=== PATIENT | female | born 1985 | race Caucasian/White ===

== ENCOUNTER 2018-10-04 19:20 | Inpatient (IN) | payer BC, SELFPAY ==
[2018-10-04] MEDS: 0.9% Saline Lock 10 ML Syringe IV (20:05)
[2018-10-04 20:19] VITALS: BMI 29.9
[2018-10-04 20:24] LABS: Absolute Lymphocyte Count 2.15 X10^3/ul (0.83-4.51); Absolute Neutrophil Count 9.1 X10^3/uL (2.0-7.7); Basophil# 0.01 X10^3/uL; Basophil% 0.1 % (0-1); Eosinophil# 0.06 X10^3/uL; Eosinophils% 0.5 % (0-5); Hematocrit 36.5 % (37-47); Hemoglobin 12.7 g/dl (12.0-15.0); Lymphocyte # 2.15 X10^3/ul (4.0); Lymphocyte % 17.4 % (19-41); Mean Corp Hgb Conc 34.8 g/gl (32-36); Mean Corpuscular Hgb 32.3 pg (27.0-32.0); Mean Corpuscular Volume 92.9 fL (81-99); Mean Platelet Vol. 12.2 fl (6.2-12.0); Monocyte# 1.05 X10^3/uL; Monocyte% 8.5 % (0-10); Neutrophil # 9.05 X10^3/uL (2.7-7.7); Neutrophil % 73.1 % (47-70); POSITIVE COUNT NO; POSITIVE DIFFERENTIAL NO; POSITIVE MORPHOLOGY NO; Platelet Count 156 K/mm3 (150-450); RBC Distribution Width CV 14.3 % (11.6-14.6); RBC Distribution Width SD 48.4 fl (35.1-43.9); Red Blood Count 3.93 M/mm3 (4.2-5.4); White Blood Count 12.4 K/mm3 (4.4-11.0)
[2018-10-04] MEDS: Lactated Ringers 1,000 ML 50 ML IV ×2 (20:51→22:25)
[2018-10-04] MEDS: Oxytocin 30 units/NS 500 ml 30 UNITS/500 ML IV.SOLN IV (23:00)
[2018-10-04] MEDS: Ondansetron 4 MG/2 ML Vial IV (23:40)
--- NOTE | 2018-10-04 23:56 | PCM.HP.OB ---
History Date of Admission: 10/04/18 Final TAMMY: 09/28/18 Gestational age: 40 Weeks and 6 Days History of this : This is a 33 year-old, G [], P [], at 40 weeks gestational age. Surgical History: Surgical History (Last Updated 10/05/18 @ 00:00 by Gucci Perez) Hx of section Z98.891 Hx of oral surgery Z98.890 Allergies No Known Allergies Allergy (Verified 10/04/18 20:20) Home Medications: Home Medications Docusate Sodium [Colace] 1 capsule PO DAILY 10/04/18 Ferrous Sulfate 325 mg PO DAILY 10/04/18 Vits [Prenatabs FA] 1 tablet PO DAILY 10/04/18 Smoking Status: Former smoker Alcohol: None Heart Tracin with mod variability, accels, variables TOCO Analysis: Q2-3 minutes History Past Pregnancies: Past Pregnancies Delivery Date Name GA/Weeks Outcome Route Weight Infant Gender Labor Length Anesthesia Delivery Location Provider FOB Labs: See [facility] Physical Exam General: Alert, Oriented x3 Abdomen: Soft, Non Tender, Non-Distended, 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 MOD - patient counseled extensively on R/B/A of repeat vs TOLAC. Patient wishes to proceed with TOLAC via induction. She is s/p AROM and is on pitocin. Anesthesia - getting epidural now. GBS negative.
[2018-10-05] VITALS (19 sets, daily range): BP systolic 98–133; BP diastolic 47–82; PULSE 71–103; RESP 14–18; TEMP 36.8–38.2; O2SAT 95–98
--- NOTE | 2018-10-05 00:03 | HP.PCM_ITS ---
History Date of Admission: 10/04/18 Final TAMMY: 09/28/18 Gestational age: 40 Weeks and 6 Days History of this : This is a 33 year-old, G [], P [], at 40 weeks gestational age. Surgical History: Surgical History (Last Updated 10/05/18 @ 00:00 by Gucci Perez) Hx of section Z98.891 Hx of oral surgery Z98.890 Allergies No Known Allergies Allergy (Verified 10/04/18 20:20) Home Medications: Home Medications Docusate Sodium [Colace] 1 capsule PO DAILY 10/04/18 Ferrous Sulfate 325 mg PO DAILY 10/04/18 Vits [Prenatabs FA] 1 tablet PO DAILY 10/04/18 Smoking Status: Former smoker Alcohol: None Heart Tracin with mod variability, accels, variables TOCO Analysis: Q2-3 minutes History Past Pregnancies: Past Pregnancies Delivery Date Name GA/Weeks Outcome Route Weight Infant Gender Labor Length Anesthesia Delivery Location Provider FOB Labs: See [facility] Physical Exam General: Alert, Oriented x3 Abdomen: Soft, Non Tender, Non-Distended, Gravid [employer]: Normal external genitalia Estimated gestational size: Appropriate for gestational size Presentation: Cephalic Cervix Dilation (cm): 4 Station: -2 Effacement (%): 70 Assessment/Plan This is a 33 year-old female at 40&6 weeks gestational age Admit to L&D. MOD - patient counseled extensively on R/B/A of repeat vs TOLAC. Patient wishes to proceed with TOLAC via induction. She is s/p AROM and is on pitocin. Anesthesia - getting epidural now. GBS negative.
[2018-10-05] MEDS: fentaNYL-bupivacaine (epidural) 100 ML BAG EPIDURAL ×3 (00:25→09:05)
[2018-10-05] MEDS: Lactated Ringers 1,000 ML 50 ML IV ×2 (02:58→09:06)
[2018-10-05] MEDS: 0.9% Saline Lock 10 ML Syringe IV (04:27)
[2018-10-05] MEDS: Ondansetron 4 MG/2 ML Vial IV (07:02)
--- NOTE | 2018-10-05 10:14 | PCM.OPRPT ---
Report of Operation Date of Procedure: 10/05/18 Pre-Operative Diagnosis: (1) Prior section (2) Attempted TOLAC (3) Failure to dilate Post-Operative Diagnosis: Same Surgery/Procedure Performed:: Repeat low transverse section Description of Surgical Findings:: Normal uterus & adnexa basket machine operator: Livia Plasencia Type of Anesthesia:: Epidural Specimen's removed: Placenta Drains: Mayo Estimated Blood Loss (mL): 700ml Fluids Replaced: 1200ml - Complications none - Admit VTE Documentation VTE Present on Admission: No VTE Mechan Device Prophylaxis: SCD's Delivery Classification: OSCAR Final TAMMY: 09/28/18 Gestational age: 41 Weeks and 0 Days Indications: See pre-op diagnoses. Attempted TOLAC that failed to dilate past 8cm. Description of Procedure: Patient taken to OR where she was prepped and draped in normal sterile fashion in a dorsal lithotomy position with a leftward tilt. After ensuring adequacy of anesthesia the Pfannensteil skin incision was made and carried through to the underlying fascia. The fascia was incised in the midline and carried laterally with the Willard scissors. The rectus muscles were in the midline and the peritoneum was entered bluntly. The bladder flap was dissected down with the Metzenbaum scissors and careful blunt dissection. The uterine incision was made with the scalpel and extended laterally w/ blunt dissection. The fetus was vertex and the head was brought to the incision in the flexed position. With good fundal pressure the head delivered easily followed by the shoulders & body. The cord was clamped and cut after 1 minute delay and the infant handed off to waiting RN. The placenta was delivered w/ gentle traction and fundal massage and the uterus was exteriorized and cleared of all clots and debris. The uterine incision was closed with 1 vicryl suture in a running locked fashion to obtain excellent hemostasis. The bladder was backfilled with 300ml methylene blue in NS. This confirmed bladder integrity. Urine was noted to have become clear just before instillation of methylene blue (just after delivery of infant the urine became more blood tinged). The uterus was then returned to the peritoneal cavity. Pelvis was irrigated. The uterine incision was reexamined and found to be hemostatic. Some royce was placed over the uterine incision & bladder flap due to the denuded areas. The parietal peritoneum was reapproximated with running 1 vicryl figure suture. The fascia was closed with looped PDS suture in a running standard fashion. The subcutaneous tissue was examined, any bleeding bovie cauterized. The subcutaneous tissue was reapproximated with plain gut suture. The skin was closed in a subcuticular fashion by the TOWER CRANE OPERATOR with me present in the labor and delivery suite. I performed the remainder of the procedure w/ assistance. Amniotic Membrane Rupture Type: Artificial Amniotic Fluid Description: Thick meconium Placenta [facility]position: [facility] Drain: Mayo to straight drain Nuchal Cord Compression: Without compression Cord Vessel Description: 3 Vessels Gender: Female (1 minute): 8 (5 minute): 9 Pre-op Antibiotic Given: Ancef 2 grams IV x1
[2018-10-05] MEDS: Sodium Citrate/Citric Acid 30 ML UDC PO (10:15)
--- NOTE | 2018-10-05 10:17 | OP.PCM_ITS ---
Report of Operation Date of Procedure: 10/05/18 Pre-Operative Diagnosis: (1) Prior section (2) Attempted TOLAC (3) Failure to dilate Post-Operative Diagnosis: Same Surgery/Procedure Performed:: Repeat low transverse section Description of Surgical Findings:: Normal uterus & adnexa racing secretary: Livia Plasencia Type of Anesthesia:: Epidural Specimen's removed: Placenta Drains: Mayo Estimated Blood Loss (mL): 700ml Fluids Replaced: 1200ml - Complications none - Admit VTE Documentation VTE Present on Admission: No VTE Mechan Device Prophylaxis: SCD's Delivery Classification: OSCAR Final TAMMY: 09/28/18 Gestational age: 41 Weeks and 0 Days Indications: See pre-op diagnoses. Attempted TOLAC that failed to dilate past 8cm. Description of Procedure: Patient taken to OR where she was prepped and draped in normal sterile fashion in a dorsal lithotomy position with a leftward tilt. After ensuring adequacy of anesthesia the Pfannensteil skin incision was made and carried through to the underlying fascia. The fascia was incised in the midline and carried laterally with the Willard scissors. The rectus muscles were in the midline and the peritoneum was entered bluntly. The bladder flap was dissected down with the Metzenbaum scissors and careful blunt dissection. The uterine incision was made with the scalpel and extended laterally w/ blunt dissection. The fetus was vertex and the head was brought to the incision in the flexed position. With good fundal pressure the head delivered easily followed by the shoulders & body. The cord was clamped and cut after 1 minute delay and the infant handed off to waiting RN. The placenta was delivered w/ gentle traction and fundal massage and the uterus was exteriorized and cleared of all clots and debris. The uterine incision was closed with 1 vicryl suture in a running locked fashion to obtain excellent hemostasis. The bladder was backfilled with 300ml methylene blue in NS. This confirmed bladder integrity. Urine was noted to have become clear just before instillation of methylene blue (just after delivery of infant the urine became more blood tinged). The uterus was then returned to the peritoneal cavity. Pelvis was irrigated. The uterine incision was reexamined and found to be hemostatic. Some royce was placed over the uterine incision & bladder flap due to the denuded areas. The parietal peritoneum was reapproximated with running 1 vicryl figure suture. The fascia was closed with looped PDS suture in a running standard fashion. The subcutaneous tissue was examined, any bleeding bovie cauterized. The subcutaneous tissue was reapproximated with plain gut suture. The skin was closed in a subcuticular fashion by the COLLEGE OR UNIVERSITY DEPARTMENT HEAD with me present in the labor and delivery suite. I performed the remainder of the procedure w/ assistance. Amniotic Membrane Rupture Type: Artificial Amniotic Fluid Description: Thick meconium Placenta Disposition: [facility] Drain: Mayo to straight drain Nuchal Cord Compression: Without compression Cord Vessel Description: 3 Vessels Gender: Female (1 minute): 8 (5 minute): 9 Pre-op Antibiotic Given: Ancef 2 grams IV x1
[2018-10-05] MEDS: Cefazolin 2 GM in 0.9% Normal Saline 100 ML IV (10:34)
[2018-10-05] MEDS: Oxytocin 30 units/NS 500 ml 30 UNITS/500 ML IV.SOLN 167 UNITS IV (11:01)
[2018-10-05] MEDS: Ketorolac 30 MG/ML Syringe IV ×2 (12:00→17:59)
[2018-10-05] MEDS: Lactated Ringers 1,000 ML 100 ML IV (12:30)
--- NOTE | 2018-10-05 18:03 | NURSING ---
Epidural cath removed, blue tip intact
[2018-10-05] MEDS: Acetaminophen 500 MG Tablet 1000 MG PO (21:03)
[2018-10-06] VITALS (11 sets, daily range): BP systolic 88–119; BP diastolic 42–71; PULSE 72–97; RESP 15–18; TEMP 36.7–37.2; O2SAT 94–98
[2018-10-06] MEDS: Lactated Ringers 1,000 ML 100 ML IV (00:28)
[2018-10-06] MEDS: Ketorolac 30 MG/ML Syringe IV ×4 (00:28→18:05)
[2018-10-06 06:12] LABS: Hematocrit 29.9 % (37-47); Mean Corp Hgb Conc 33.4 g/gl (32-36); Mean Corpuscular Hgb 31.5 pg (27.0-32.0); Mean Corpuscular Volume 94.3 fL (81-99); Mean Platelet Vol. 11.7 fl (6.2-12.0); Platelet Count 110 K/mm3 (150-450); RBC Distribution Width CV 14.3 % (11.6-14.6); RBC Distribution Width SD 47.2 fl (35.1-43.9); Red Blood Count 3.17 M/mm3 (4.2-5.4); White Blood Count 22.1 K/mm3 (4.4-11.0)
[2018-10-06 06:13] LABS: Scan Indicated on CBC? Y/N NO
[2018-10-06] MEDS: Acetaminophen 500 MG Tablet 1000 MG PO (08:39)
[2018-10-06] MEDS: 0.9% Saline Lock 10 ML Syringe IV ×3 (11:46→18:08)
--- NOTE | 2018-10-06 12:11 | PN.OBGYN_ITS ---
Subjective: Doing well per patient and nursing staff. Ambulating and taking PO without difficulty. Voiding at this time. No bowel movement. Denies TRAVIS,vis chg's, CP,SOB,VB,LOF,or dysuria. Pain controlled. - Physical Exam General: Alert, Oriented x3, Cooperative HEENT: Atraumatic, Normocephalic Lungs: Clear to auscultation, Normal air movement, No rhonchi, No wheeze Cardiovascular: Regular rate, Regular Rhythm, No murmurs Abdomen: Bowel Sounds Present, Soft, Non Tender, - - Incision clean, dry, and intact Extremities: - - BLE pedal edema, +1. Aaron's negative bilaterally Psych/Mental Status: Normal Affect, Appropriate Vital Signs Temp Pulse Resp BP Pulse Ox 98.4 F 74 18 104/61 98 10/06/18 11:35 10/06/18 11:35 10/06/18 11:35 10/06/18 11:35 10/06/18 11:35 Oxygen Delivery Method Room Air Weight: 185 lb 3.013 oz Body Mass Index (BMI) 29.9 Intake and Output for Last 24 Hours 10/04/18 10/05/18 10/06/18 23:59 23:59 23:59 Intake Total 8276 / 8276 1222 / 1222 Output Total 4650 / 4650 2075 / 2075 Balance 3626 / 3626 -853 / -853 Laboratory Tests Past 24 Hrs 10/06/18 05:53 WBC 22.1 H RBC 3.17 L Hgb 10.0 L Hct 29.9 L MCV 94.3 MCH 31.5 MCHC 33.4 RDW 14.3 RDW Differential 47.2 H Plt Count 110 L MPV 11.7 Medical Necessity - Tobacco Use Smoking Status: Former smoker Assessment/Plan A: POD #1 RLTCS P: 1) Routine post op care 2) Pain management 3) Discharge home tomorrow.
[2018-10-06] MEDS: Senna/Docusate Sodium 1 Tablet PO (21:44)
--- NOTE | 2018-10-06 23:32 | DCINST_ITS ---
Discharge Diet: No Restrictions Discharge Activity: May Not Drive - for 2 weeks or while taking narcotic pain meds., May Shower, May Take a Tub Bath - in 7 days. May resume sexual activity in: 4-6 weeks Lifting Restrictions: 20 pounds Additional Activity Instructions:: Nothing in the vagina for 4-6 weeks. You may return to work/school in 6 weeks. Call your doctor if your incision/area has: Continuous Slow Oozing, Sudden Increased Bleeding, Increased Pain/ Swelling, Increased Redness, Foul Smelling Discharge Call your doctor if you observe: Fever of 101 or Higher, Inability to urinate, Inability to have a bowel movement, Using more than one pad per hour, Shortness of breath, Chest pain, Increased palpitations (irregular heartbeat), Calf discomfort, Uncontrolled pain Suture Line Care: Avoid Pulling/Pushing, Avoid Pinching/Bending Remove Dressing in (days):: 7 Cleanse incision/area with: Keep Dressing Clean & Dry Additional Instructions: If you experience any of the following, contact your healthcare provider. * Bleeding that soaks a pad every hour for 2 hours * Fever 100.4 or higher * Unrelieved incision or abdominal pain * Swelling, redness, discharge or bleeding from your incision or episiotomy site * Your incision begins to separate * Problems urinating (including inability to urinate or burning while urinating). * Visual changes * Severe headache * Flu-like symptoms * Pain or redness in one of both of your breasts * Pain, warmth, tenderness or swelling in your legs, especially the calf area * Frequent nausea and vomiting * Symptoms of depression or anxiety If you experience any of the following, call 911 or go to the nearest Emergency Room. * Chest pain * Problems breathing * Seizure activity * Partial or complete paralysis of a body part, slurred speech, weakness or drooping of the face, or a sudden inability to walk or hold your balance Allergies/Adverse Reactions: Allergies No Known Allergies Allergy (Verified 10/04/18 20:20) Medications to take at Discharge Docusate Sodium [Colace] 1 capsule PO DAILY 10/04/18 Ferrous Sulfate 325 mg PO DAILY 10/04/18 Vits [Prenatabs FA ] 1 tablet PO DAILY 10/04/18 Oxycodone HCl/Acetaminophen [Percocet 5/325] 1 - 2 tab PO Q4H PRN PRN 7 Days #20 tab 10/06/18 The following prescriptions were given: Oxycodone HCl/Acetaminophen [Percocet 5/325] 1 - 2 tab PO Q4H PRN PRN 7 Days #20 tab PRN Reason: Pain Follow-Up: Call to make an appointment with your doctor for an incision check in 1-2 weeks. You will also need a 6 week post- follow up appointment. Test results from this visit will be discussed in further detail at your follow- up appointment, if applicable. Please Follow Up With: Gucci Perez Primary Care Physician: Care Physician,No Primary [Primary Care Provider] -
--- NOTE | 2018-10-06 23:33 | PCM.DC.SUM ---
Discharge Date and Diagnosis Date of Admission: 10/04/18 Date of Discharge: 10/07/18 - Primary Discharge Diagnosis Trial of Labor After Section Hospital Course and Treatment Operations: - - Failed TOLAC, Repeat LTCS Summary of Care Provided: The patient is a 33 year old F [presented for postdates TOLAC induction of labor. Attempted TOLAC that failed to dilate past 8cm. Repeat LTCS completed by . No complications. Discharge home on POD#2. ] - Physical Exam Vital Signs Temp Pulse Resp BP Pulse Ox 98.9 F 91 18 119/58 L 94 10/06/18 21:25 10/06/18 21:25 10/06/18 21:25 10/06/18 21:25 10/06/18 21:25 Oxygen Delivery Method Room Air Weight: 185 lb 3.013 oz Body Mass Index (BMI) 29.9 Intake and Output for Last 24 Hours 10/04/18 10/05/18 10/06/18 23:59 23:59 23:59 Intake Total 8276 / 8276 1222 / 1222 Output Total 4650 / 4650 3675 / 3675 Balance 3626 / 3626 -2453 / -2453 Laboratory Tests Past 24 Hrs 10/06/18 05:53 WBC 22.1 H RBC 3.17 L Hgb 10.0 L Hct 29.9 L MCV 94.3 MCH 31.5 MCHC 33.4 RDW 14.3 RDW Differential 47.2 H Plt Count 110 L MPV 11.7 Discharge Diet: No Restrictions Discharge Activity: May Not Drive - for 2 weeks or while taking narcotic pain meds., May Shower, May Take a Tub Bath - in 7 days. May resume sexual activity in: 4-6 weeks Additional Activity Instructions:: Nothing in the vagina for 4-6 weeks. You may return to work/school in 6 weeks. Call your doctor if your incision/area has: Continuous Slow Oozing, Sudden Increased Bleeding, Increased Pain/ Swelling, Increased Redness, Foul Smelling Discharge Call your doctor if you observe: Fever of 101 or Higher, Inability to urinate, Inability to have a bowel movement, Using more than one pad per hour, Shortness of breath, Chest pain, Increased palpitations (irregular heartbeat), Calf discomfort, Uncontrolled pain Suture Line Care: Avoid Pulling/Pushing, Avoid Pinching/Bending Remove Dressing in (days):: 7 Cleanse incision/area with: Keep Dressing Clean & Dry Home Medications: Medications to take at Discharge Docusate Sodium [Colace] 1 capsule PO DAILY 10/04/18 Ferrous Sulfate 325 mg PO DAILY 10/04/18 Vits [Prenatabs FA ] 1 tablet PO DAILY 10/04/18 Oxycodone HCl/Acetaminophen [Percocet 5/325] 1 - 2 tab PO Q4H PRN PRN 7 Days #20 tab 10/06/18 Following Prescrptions Were Given to Patient: Oxycodone HCl/Acetaminophen [Percocet 5/325] 1 - 2 tab PO Q4H PRN PRN 7 Days #20 tab PRN Reason: Pain Primary Care Physician: Care Physician,No Primary [Primary Care Provider] - Please Follow Up With: Gucci Perez Medical Necessity - Tobacco Use Smoking Status: Former smoker Meaningful Use Info Meaningful Use Diagnoses (Choose all that apply): None applicable
[2018-10-07] MEDS: 0.9% Saline Lock 10 ML Syringe IV ×2 (00:42→05:38)
[2018-10-07] MEDS: Ketorolac 30 MG/ML Syringe IV ×2 (00:42→05:38)
[2018-10-07 01:45] VITALS: BP 109/47; PULSE 77; RESP 18; TEMP 37
--- NOTE | 2018-10-07 02:40 | PN.OBGYN_ITS ---
Subjective: Doing well per patient and nursing staff. Ambulating and taking PO without difficulty. Voiding and passing flatus. Pain controlled. Denies TRAVIS,vis ch g's,CP,SOB, or increased vaginal bleeding. Planning D/C home today. - Physical Exam General: Alert, Oriented x3, Cooperative HEENT: Atraumatic, Normocephalic Lungs: Clear to auscultation, Normal air movement, No rhonchi, No wheeze Cardiovascular: Regular rate, Regular Rhythm, No murmurs Abdomen: Bowel Sounds Present, Passing Flatus, - - Dressing dry and intact, no drainage Extremities: No edema Psych/Mental Status: Normal Affect, Appropriate Vital Signs Temp Pulse Resp BP Pulse Ox 98.6 F 77 18 109/47 L 94 10/07/18 01:45 10/07/18 01:45 10/07/18 01:45 10/07/18 01:45 10/06/18 21:25 Oxygen Delivery Method Room Air Weight: 185 lb 3.013 oz Body Mass Index (BMI) 29.9 Intake and Output for Last 24 Hours 10/05/18 10/06/18 10/07/18 23:59 23:59 23:59 Intake Total 8276 / 8276 1222 / 1222 Output Total 4650 / 4650 3675 / 3675 Balance 3626 / 3626 -2453 / -2453 Laboratory Tests Past 24 Hrs 10/06/18 05:53 WBC 22.1 H RBC 3.17 L Hgb 10.0 L Hct 29.9 L MCV 94.3 MCH 31.5 MCHC 33.4 RDW 14.3 RDW Differential 47.2 H Plt Count 110 L MPV 11.7 Medical Necessity - Tobacco Use Smoking Status: Former smoker Assessment/Plan A:POD #2 status post RLTCS P: 1) Discharge and instructions given. Planning D/C home today. 2) Follow up in 2 weeks for incision check and 6 week for visit. 3) Percocet Rx for pain.
[2018-10-07 08:32] VITALS: BP 108/57; PULSE 65; RESP 18; TEMP 36.9; O2SAT 95
== END 2018-10-07 10:45 | disposition home or self-care (01) | DRG 786 ==
PROVIDERS: Admitting Provider Obstetrics & Gynecology; Visit Provider Obstetrics & Gynecology
PROC: 10D00Z1 Extraction of Products of Conception, Low, Open Approach (ICD-10-PCS; CPT 59514; principal; 2018-10-05 07:15)
DX: O34.211 Maternal care for low transverse scar from previous cesarean delivery (principal); O71.1 Rupture of uterus during labor; O48.0 Post-term pregnancy; O66.41 Failed attempted vaginal birth after previous cesarean delivery; O77.0 Labor and delivery complicated by meconium in amniotic fluid; Z3A.41 41 weeks gestation of pregnancy; Z37.0 Single live birth; Z87.891 Personal history of nicotine dependence
CPT/HCPCS: 59025; 59050; 85025; 85027; 86850; 86900; 99218; J7120; A4216; G0378; J2405; Q9968